=== PATIENT | male | born 1985 | race American Indian/Alaskan Native ===

== ENCOUNTER 2018-09-12 21:05 | Emergency (ER) | payer OTHER ==
--- NOTE | 2018-09-12 22:47 | ED PDOC ---
HPI: Psych/Substance Abuse Time Seen by Provider: 09/12/18 21:10 Chief Complaint (Nursing): Psychiatric Evaluation Chief Complaint (Provider): Psychiatric Evaluation History Per: Patient History/Exam Limitations: no limitations Onset/Duration Of Symptoms: Days (several) Current Symptoms Are (Timing): Still Present Suicide/Self Injury Attempted (Context): None Modifying Factor(s): None Associated Symptoms: Other (hallucinations) Additional Complaint(s): 33 year old male with a previous psychiatric history presnts ot the ED for evaluation of several days of worsening auditory hallucinations. Patient is non compliant with medications. He reports that voices are telling him to harm himself. Patient denies an attempt to harm himself. His only medical complaint is an ongoing foot fungus for which he took medications with complete resolution in the past. Denies homicidal ideation. PMD: none provided Past Medical History Reviewed: Historical Data, Nursing Documentation, Vital Signs Vital Signs: Last Vital Signs Temp 98.4 F 09/12/18 21:06 Pulse 81 09/12/18 21:06 Resp 18 09/12/18 21:06 BP 135/86 09/12/18 21:06 Pulse Ox 100 09/12/18 21:06 - Medical History PMH: Bipolar Disorder, Schizophrenia - Surgical History Surgical History: No Surg Hx - Family History Family History: States: Unknown Family Hx - Immunization History Hx Tetanus Toxoid Vaccination: No Hx Influenza Vaccination: No Hx Pneumococcal Vaccination: No - Home Medications Home Medications: Ambulatory Orders Medication Instructions Recorded Unobtainable 09/13/18 - Allergies Allergies/Adverse Reactions: Allergies Allergy/AdvReac Type Severity Reaction Status Date / Time divalproex sodium Allergy RASH Verified 09/12/18 21:08 [From Depakote] risperidone Allergy RASH Verified 09/12/18 21:08 Review of Systems ROS Statement: Except As Marked, All Systems Reviewed And Found Negative Psych: Positive for: Other (auditory hallucinations) Physical Exam - Reviewed Nursing Documentation Reviewed: Yes Vital Signs Reviewed: Yes - Physical Exam Appears: Positive for: Non-toxic, No Acute Distress Head Exam: Positive for: ATRAUMATIC, NORMAL INSPECTION, NORMOCEPHALIC Skin: Positive for: Normal Color, Warm, Dry. Negative for: Rash Eye Exam: Positive for: EOMI, Normal appearance, PERRL Neck: Positive for: Normal, Painless ROM, Supple Cardiovascular/Chest: Positive for: Regular Rate, Rhythm. Negative for: Murmur Respiratory: Positive for: Normal Breath Sounds. Negative for: Respiratory Distress Gastrointestinal/Abdominal: Positive for: Normal Exam, Soft. Negative for: Tenderness Back: Positive for: Normal Inspection. Negative for: L CVA Tenderness, R CVA T enderness Extremity: Positive for: Normal ROM, Other (Desquamation between toes and mild bleeding between 3rd and 4th digits of foot. No overlying cellulitis). Negative for: Deformity Neurological/Psych: Positive for: Awake, Alert, Normal Tone, Oriented. Negative for: Motor/Sensory Deficits - Laboratory Results Result Diagrams: 09/13/18 00:23 09/13/18 00:23 - ECG O2 Sat by Pulse Oximetry: 100 (RA) Pulse Ox Interpretation: Normal Medical Decision Making Medical Decision Makin:11 MDM: Psychiatric evaluation No indication for lab workup at this time. Discharge with anti-fungal medication if not admitted. If patient admitted, will begin anti-fungal medication in ED. 23:54 Patient requiring [facility] screening, ordering medical work up. 00:00 Patient care endorsed to Dr. Pantoja pending labs, medical workup, and [facility] screening. Scribe Attestation: Documented by Brielle Anderson and Yuri Kinsey, acting as a scribe Bell Guido MD Provider Scribe Attestation: All medical record entries made by the Scribe were at my direction and personally dictated by me. I have reviewed the chart and agree that the record accurately reflects my personal performance of the history, physical exam, medical decision making, and the department course for this patient. I have also personally directed, reviewed, and agree with the discharge instructions and disposition. Disposition - Clinical Impression Clinical Impression: Schizoaffective disorder, bipolar type - Patient ED Disposition Is Patient to be Admitted: Transfer of Care - Disposition Disposition: Transfer of Care Disposition Time: 00:00 Condition: STABLE Additional Instructions: FOLLOW-UP WITH [facility] RECOMMENDED. Instructions: Schizoaffective Disorder Forms: [employer] (Albanian) Patient Signed Over To: Neftaly Pantoja
--- NOTE | 2018-09-13 00:04 | ED PDOC ---
- Laboratory Results Result Diagrams: 09/13/18 00:23 09/13/18 00:23 - ECG O2 Sat by Pulse Oximetry: 100 (RA) Pulse Ox Interpretation: Normal Medical Decision Making Medical Decision Makin:00 Patient care endorsed from Dr. Guido to provider pending labs, medical workup and [facility] [place]. 07:00 Patient care endorsed to Dr. Schmidt pending [facility] [place]. Scribe Attestation: Documented by Yuri Kinsey, acting as a scribe Oliver Pantoja MD Provider Scribe Attestation: All medical record entries made by the Scribe were at my direction and personally dictated by me. I have reviewed the chart and agree that the record accurately reflects my personal performance of the history, physical exam, medical decision making, and the department course for this patient. I have also personally directed, reviewed, and agree with the discharge instructions and disposition Disposition - Clinical Impression Clinical Impression: Schizoaffective disorder, bipolar type - POA Present On Arrival: None - Disposition Disposition: Routine/Home Disposition Time: 07:00 Condition: STABLE Additional Instructions: FOLLOW-UP WITH [facility] RECOMMENDED. Instructions: Schizoaffective Disorder Forms: [employer] (Cape Verdean) Patient Signed Over To: Nohemy Schmidt Handoff Comments: [facility] [place]
[2018-09-13 02:04] LABS: BASO % 0.4 % (0.0-2.0); EOS # 0.1 K/uL (0.0-0.7); EOS % 1.4 % (0.0-4.0); HEMOGLOBIN 13.4 g/dL (12.0-18.0); LYMPH # 2.6 K/uL (1.0-4.3); LYMPH % 26.9 % (20.0-40.0); MEAN CELL VOLUME 90.2 fl (80.0-94.0); MEAN CORPUSCULAR HEMOGLOBIN 30.3 pg (27.0-31.0); MEAN CORPUSCULAR HGB CONC 33.6 g/dL (33.0-37.0); MEAN PLATELET VOLUME 8.5 fl (7.2-11.7); MONO # 0.8 K/uL (0.0-0.8); MONO % 8.5 % (0.0-10.0); NEUT % 62.8 % (50.0-75.0); RBC 4.42 Mil/uL (4.40-5.90); RED CELL DISTRIBUTION WIDTH 12.3 % (11.5-14.5); WHITE BLOOD COUNT 9.5 K/uL (4.8-10.8)
[2018-09-13 02:28] LABS: BLOOD UREA NITROGEN 21 mg/dl (9-20); CALCIUM 9.6 mg/dL (8.4-10.2); GFR NON-AFRICAN AMERICAN > 60
[2018-09-13 03:14] LABS: BARBITURATES, UR NEGATIVE (NEGATIVE); BENZODIAZEPINES, UR NEGATIVE (NEGATIVE); OPIATES, UR NEGATIVE (NEGATIVE); PHENCYCLIDINE, UR NEGATIVE (NEGATIVE)
--- NOTE | 2018-09-13 07:30 | ED PDOC ---
- Laboratory Results Result Diagrams: 09/13/18 00:23 09/13/18 00:23 - ECG O2 Sat by Pulse Oximetry: 100 (RA) Pulse Ox Interpretation: Normal Medical Decision Making Medical Decision Making: Time: 7:00 Patient presenting for psychiatric evaluation was signed out to me by Dr. Pantoja pending [facility] screening. 11:45 Patient evaluated by Ministerio [facility] who states patient is suitable for discharge home. Scribe Attestation: Documented by Faby Villar, acting as a scribe for Nohemy Schmidt MD. Provider Scribe Attestation: All medical record entries made by the Scribe were at my direction and personally dictated by me. I have reviewed the chart and agree that the record accurately reflects my personal performance of the history, physical exam, medical decision making, and the department course for this patient. I have also personally directed, reviewed, and agree with the discharge instructions and disposition. Disposition - Clinical Impression Clinical Impression: Schizoaffective disorder, bipolar type - POA Present On Arrival: None - Disposition Disposition: Routine/Home Disposition Time: 11:50 Condition: STABLE Additional Instructions: FOLLOW-UP WITH [facility] RECOMMENDED. Instructions: Schizoaffective Disorder Forms: [employer] (Urdu)
[2018-09-13 09:41] VITALS: BP 126/71; PULSE 82; RESP 19; TEMP 98.4
--- NOTE | 2018-09-13 10:03 | RAD ---
Date of service: 09/13/2018 HISTORY: Possible admission COMPARISON: No prior. TECHNIQUE: 1 view obtained. FINDINGS: LUNGS: No active pulmonary disease. PLEURA: No significant pleural effusion identified, no pneumothorax apparent. CARDIOVASCULAR: No aortic atherosclerotic calcification present. Normal cardiac size. No pulmonary vascular congestion. OSSEOUS STRUCTURES: No significant abnormalities. VISUALIZED UPPER ABDOMEN: Normal. OTHER FINDINGS: None. IMPRESSION: No active disease.
[2018-09-13 11:08] LABS: SPERM URINE RARE /hpf; SQUAMOUS EPITHIAL < 1 /hpf (0-5); URINE BILIRUBIN NEGATIVE (NEGATIVE); URINE BLOOD NEGATIVE (NEGATIVE); URINE CLARITY CLEAR (Clear); URINE COLOR YELLOW (YELLOW); URINE GLUCOSE (UA) NEG (NEGATIVE); URINE LEUKOCYTE ESTERASE NEG Leu/uL (Negative); URINE PROTEIN 30 mg/dL (NEGATIVE); URINE UROBILINOGEN 0.2-1.0 mg/dL (0.2-1.0)
[2018-09-13 12:04] VITALS: O2SAT 100
--- NOTE | 2018-09-13 14:45 | CARD ---
APPROVED REPORT Date of service: 09/13/2018 EKG Measurement Heart [id number] <Conclusion> Normal sinus rhythm Normal ECG
== END 2018-09-13 11:55 | disposition home or self-care (01) ==
LOC: H.ER 21:05
DX: F25.0 Schizoaffective disorder, bipolar type (principal); Z91.14 Patient's other noncompliance with medication regimen; Z88.8 Allergy status to other drugs, medicaments and biological substances

== ENCOUNTER 2018-09-28 10:46 | Emergency (ER) | payer MEDICAID, OTHER ==
[2018-09-28 10:49] VITALS: BMI 24.4
[2018-09-28 10:50] VITALS: TEMP 98.4; O2SAT 99
--- NOTE | 2018-09-28 11:33 | ED PDOC ---
HPI: Psych/Substance Abuse Time Seen by Provider: 09/28/18 10:49 Chief Complaint (Nursing): Psychiatric Evaluation Chief Complaint (Provider): Psychiatric Evaluation History Per: Patient History/Exam Limitations: no limitations Onset/Duration Of Symptoms: Other (constant) Current Symptoms Are (Timing): Still Present Additional Complaint(s): Patient is a 33 y/o male with a PMHx of bipolar disorder and schizophrenia who presents to the ED for evaluation of constant, derogatory, auditory hallucinations. Patient claims he is hearing phrases such as "your butt is throb riya....you can get it....perfect." Patient denies suicidal or homicidal ideation. Of note, patient has not been taking his psychiatric medication and has not been seen by a psychiatrist in over two years. PCP: None Provided Past Medical History Reviewed: Historical Data, Nursing Documentation, Vital Signs Vital Signs: Last Vital Signs Temp 98.4 F 09/28/18 10:49 Pulse 89 09/28/18 10:49 Resp 17 09/28/18 10:49 BP 146/79 09/28/18 10:49 Pulse Ox 99 09/28/18 10:49 - Medical History PMH: Bipolar Disorder, Schizophrenia Denies: Diabetes, Hepatitis, HIV, HTN, Seizures, Sexually Transmitted Disease - Surgical History Surgical History: No Surg Hx - Family History Family History: States: Unknown Family Hx - Immunization History Hx Tetanus Toxoid Vaccination: No Hx Influenza Vaccination: No Hx Pneumococcal Vaccination: No - Home Medications Home Medications: Ambulatory Orders Medication Instructions Recorded No Known Home Med 09/28/18 - Allergies Allergies/Adverse Reactions: Allergies Allergy/AdvReac Type Severity Reaction Status Date / Time divalproex sodium Allergy RASH Verified 09/12/18 21:08 [From Depakote] risperidone Allergy RASH Verified 09/12/18 21:08 Review of Systems ROS Statement: Except As Marked, All Systems Reviewed And Found Negative Psych: Positive for: Other (derogatory, auditory hallucinations). Negative for: Suicidal ideation (or homicidal ideation) Physical Exam - Reviewed Nursing Documentation Reviewed: Yes Vital Signs Reviewed: Yes - Physical Exam Appears: Positive for: No Acute Distress Head Exam: Positive for: ATRAUMATIC, NORMAL INSPECTION, NORMOCEPHALIC Skin: Positive for: Normal Color, Warm, DRY Eye Exam: Positive for: EOMI, Normal appearance, PERRL Neck: Positive for: Normal, Painless ROM, Supple Cardiovascular/Chest: Positive for: Regular Rate, Rhythm. Negative for: Murmur Respiratory: Positive for: Normal Breath Sounds. Negative for: Respiratory Distress Gastrointestinal/Abdominal: Positive for: Normal Exam, Soft. Negative for: Tenderness Back: Positive for: Normal Inspection. Negative for: L CVA Tenderness, R CVA Tenderness, Vertebral Tenderness Extremity: Positive for: Normal ROM. Negative for: Pedal Edema, Deformity Neurological/Psych: Positive for: Alert, Oriented (x3) - ECG O2 Sat by Pulse Oximetry: 99 (RA) Pulse Ox Interpretation: Normal Medical Decision Making Medical Decision Making: Time: 1130 Impression: Auditory hallucinations for crisis evaluation Plan: No indication for medical workup at this time. Time: 1305 Dr. Jefferson cleared patient. Patient diagnosed with adjustment disorder. Scribe Attestation: Documented by Kris Anderson, acting as a scribe Bell Guido MD. Provider Scribe Attestation: All medical record entries made by the Scribe were at my direction and personally dictated by me. I have reviewed the chart and agree that the record accurately reflects my personal performance of the history, physical exam, medical decision making, and the department course for this patient. I have also personally directed, reviewed, and agree with the discharge instructions and disposition. Disposition - Clinical Impression Clinical Impression: Adjustment disorder - Disposition Disposition Time: 13:05 Condition: IMPROVED Additional Instructions: FOR MENTAL HEALTH/[facility] FOLLOW UP WITH [facility] [address] [place], [place] [phone] RESIDENTIAL PLACEMENT [facility] [address] [facility] [address] [place] [address] Forms: [employer] (Slovenian) Print Language: SERBIAN
[2018-09-28 13:56] VITALS: BP 138/78; PULSE 70; RESP 18
== END 2018-09-28 14:05 | disposition home or self-care (01) ==
LOC: H.ER 10:46
DX: F43.20 Adjustment disorder, unspecified (principal); Z86.59 Personal history of other mental and behavioral disorders; Z88.8 Allergy status to other drugs, medicaments and biological substances; Z00.8 Encounter for other general examination